=== PATIENT | female | born 1980 | race African-American/Black ===

== ENCOUNTER 2016-09-25 23:35 | Emergency (ER) | payer OTHER ==
[2016-09-25 23:52] VITALS: BP 108/59; PULSE 85; TEMP 98; BMI 42.9
== END 2016-09-26 00:17 | disposition left against medical advice (07) ==
LOC: JER 23:35
DX: Z53.21 Procedure and treatment not carried out due to patient leaving prior to being seen by health care provider (principal)
CPT/HCPCS: 99281-25

== ENCOUNTER 2017-01-03 05:25 | Inpatient (IN) | payer OTHER ==
[2017-01-03] MEDS ORDERED: ELECTROLYTE-148 SOLN 1,000 ML IV ONE (05:45)
[2017-01-03 06:26] LABS: BASOPHIL 0.4 % (0-2.0); EOSINOPHIL 0.9 % (0-4.5); MCH 27.2 pg (25.7-33.7); MEAN CELL VOLUME 84.9 fl (80-96); MEAN PLT VOLUME 8.1 fl (7.5-11.1); NEUTROPHILS 71.3 % (42.8-82.8); PLATELET COUNT 257 K/MM3 (134-434); RDW 15.2 % (11.6-15.6); WHITE BLOOD COUNT 12.8 K/mm3 (4.0-10.0)
[2017-01-03 06:42] VITALS: BMI 46.1
[2017-01-03 06:42] LABS: INR 0.98 (0.82-1.09); PROTHROMBIN TIME (PATIENT) 10.8 SEC (9.98-11.88)
[2017-01-03 06:48] LABS: CALCIUM 8.7 mg/dL (8.5-10.1); COCKROFT - GAULT 315.486; CREATININE 0.5 mg/dL (0.55-1.02)
[2017-01-03] MEDS ORDERED: METOCLOPRAMIDE HCL INJECTION 10 MG/2 ML VIAL IVPUSH ONE (07:12)
[2017-01-03] MEDS ORDERED: ALBUTEROL SO4 0.083% IH SOL 2.5 MG/3 ML VIAL.NEB. NEB PRN (07:40)
[2017-01-03] MEDS ORDERED: CITRIC ACID/SODIUM CITRATE 30 ML UNIT-DOSE CUP PO ONE (07:42)
--- NOTE | 2017-01-03 07:49 | HP ---
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 Weeks Gestation by Dates: 39 ...EDC by Dates: 01/10/17 ...EDC by Sono: 01/10/17 Infectious Disease: Yes: STD's (tx for chlamydia) - Past Surgical History Past Surgical History: Yes: Hx Myomectomy: No Hx Transabdominal Cerclage: No - Smoking History Smoking history: Unknown if ever smoked Have you smoked in the past 12 months: No Aproximately how many cigarettes per day: 0 - Alcohol/Substance Use Hx Alcohol Use: No History of Substance Use: reports: None - Social History History of Recent Travel: No Home Medications - Allergies Allergies/Adverse Reactions: Allergies Allergy/AdvReac Type Severity Reaction Status Date / Time amoxicillin trihydrate Allergy Mild Hives Verified 01/03/17 06:52 [From Augmentin] Latex, Natural Rubber Allergy Mild Swelling Verified 01/03/17 06:52 potassium clavulanate Allergy Mild Hives Verified 01/03/17 06:52 [From Augmentin] sulfamethoxazole Allergy Swelling Verified 01/03/17 06:52 [From Bactrim] trimethoprim [From Bactrim] Allergy Swelling Verified 01/03/17 06:52 seafood Allergy Severe Difficulty Uncoded 11/12/16 18:40 Breathing - Home Medications Home Medications: Ambulatory Orders Pnv95/Iron Fum/Folic Acid [ Caplet] 1 each PO DAILY 09/25/16 Albuterol 0.083% Nebulizer Bria [Ventolin 0.083% Nebulizer Soln -] 1 amp PO PRN PRN 11/12/16 Review of Systems - Review of Systems Constitutional: reports: No Symptoms Eyes: reports: No Symptoms HENT: reports: No Symptoms Neck: reports: No Symptoms Cardiovascular: reports: No Symptoms Respiratory: reports: No Symptoms Gastrointestinal: reports: No Symptoms Genitourinary: reports: No Symptoms Breasts: reports: No Symptoms Reported Musculoskeletal: reports: No Symptoms Integumentary: reports: No Symptoms Neurological: reports: No Symptoms Endocrine: reports: No Symptoms Hematology/Lymphatic: reports: No Symptoms Physical Exam - Maternity Vital Signs: Vital Signs Temperature 99 F 01/03/17 05:25 Pulse Rate 95 H 01/03/17 05:25 Respiratory Rate 20 01/03/17 05:25 Blood Pressure 132/61 01/03/17 05:25 O2 Sat by Pulse Oximetry (%) Constitutional: Yes: No Distress, Calm, Obese Eyes: Yes: WNL, Conjunctiva Clear, EOM Intact HENT: Yes: WNL, Atraumatic, Normocephalic Neck: Yes: WNL, Supple, Trachea Midline Cardiovascular: Yes: WNL, Regular Rate and Rhythm Breast(s): Yes: WNL - Abdominal Exam/OB Fundal Height: 40 Number of Fetuses: Single Presentation: Vertex Contractions: No Intensity: Unaware Monitor Mode: External Heart Rate Location: [facility] Category: I Accelerations: Uniform Decelerations: None - Vaginal Exam/OB Vaginal Bleediing: No Speculum Exam: No Dilatation (cm): closed Effacement (%): 0 Amniotic Membrane Status: Intact Presentation: Vertex/Position Station: -3 - Physical Exam Musculoskeletal: Yes: WNL Extremities: Yes: WNL Edema: LLE: Trace, RLE: Trace Integumentary: Yes: WNL Deep Tendon Reflex Grade: Normal +2 ...Motor Strength: WNL Psychiatric: Yes: WNL - Labs Lab Results: CBC, BMP 01/03/17 06:00 01/03/17 06:00 Hemorrhage Risk Assessment - Risk Factors Risk Score: 3 Risk Level: High Risk Problem List - Problems (1) with 39 completed weeks gestation Code(s): Z3A.39 - 39 WEEKS GESTATION OF (2) Previous delivery affecting Code(s): O34.219 - MATERNAL CARE FOR UNSP TYPE SCAR FROM PREVIOUS DEL (3) Advanced maternal age (AMA) in Code(s): BHT7309 - (4) Obesity (BMI 30-39.9) Code(s): E66.9 - OBESITY, UNSPECIFIED Assessment/Plan repeat c/s , rba discussed
[2017-01-03] MEDS ORDERED: BENZOCAINE 20% 57 GM BOTTLE TP PRN (08:53)
[2017-01-03] MEDS ORDERED: WITCH HAZEL 50% (TUCKS) 40 PAD/JAR PAD TP PRN (08:53)
[2017-01-03] MEDS ORDERED: oxyCODONE HCL 5 MG TABLET PO PRN (08:53)
[2017-01-03] MEDS ORDERED: METHYLERGONOVINE MALEATE 0.2 MG/1 ML AMP IM PRN (08:53)
[2017-01-03] MEDS ORDERED: diphenhydrAMINE HCL 25 MG CAPSULE (FP) PO PRN (08:53)
[2017-01-03] MEDS ORDERED: BENZOCAINE 28 GM HEMORRHOIDAL OINTMENT PR PRN (08:53)
[2017-01-03] MEDS ORDERED: IBUPROFEN 800 MG/8 ML IJ IVPB PRN (08:53)
[2017-01-03] MEDS ORDERED: OXYTOCIN 20 UNITS in 0.9% NS 1,000 ML IV SCH (09:00)
[2017-01-03] MEDS ORDERED: ALBUTEROL SO4 6.7 GM HFA INHALER IH PRN (09:25)
--- NOTE | 2017-01-03 09:41 | OP ---
DATE OF OPERATION: 01/03/2017 PREOPERATIVE DIAGNOSIS: at 39 weeks, 2 previous sections, advanced maternal age, obesity. Request of repeat section. POSTOPERATIVE DIAGNOSIS: at 39 weeks, 2 previous sections, advanced maternal age, obesity. Request of repeat section. PROCEDURE: Repeat low-segment transverse section. SURGEON: Dylon Paul MD INTERVENTION NURSE: CARRIE Garibay ANESTHESIA: Spinal. ANESTHESIOLOGIST: Andrew Oleary MD ESTIMATED BLOOD LOSS: 500 mL. FINDINGS: Live baby girl, ROT position, Apgars 9, 9. OPERATIVE PROCEDURE: The patient was taken to the operating room. Under adequate spinal anesthesia, abdomen and perineum were prepped and draped. Pfannenstiel abdominal skin incision was made over the previous incision. Abdominal wall was cut layer by layer until peritoneum was exposed and incised. Upon entering the abdominal cavity, lower uterine segment was identified and ureterovesical fold of peritoneum established. Bladder was pushed down. Then with the lower blade of the Everett retractor in the pelvis, a low transverse uterine incision was made, incision extended laterally. Amniotic sac was entered. Clear fluid had delivered. Nasopharynx was suctioned and live baby girl was delivered from right occiput transverse position. Nasopharynx was suctioned. Placenta was delivered manually. Uterine cavity was cleaned of all remaining tissue. Uterine incision was closed in 2 layers, first layer with 0 Biosyn continuous suture, the second layer with 0 Biosyn imbricating the first layer. Bladder flap was closed with 0 Biosyn continuous suture. Both tubes and ovaries were checked. No active bleeding was seen. All the lap pads, sponge, and instrument counts were correct. Then peritoneum was closed with 0 Biosyn continuous suture. Muscle was brought together with interrupted suture of 0 Biosyn. Fascia was closed with 0 Biosyn continuous suture, subcutaneous fat interrupted suture of 0 Biosyn, and the skin was closed with elisha. Patient tolerated the procedure well, left the OR in good condition. DYLON PAUL M.D. [id number]
[2017-01-03] MEDS ORDERED: CEFAZOLIN 1 GM/D5W 50 ML IVPB SCH (10:00)
[2017-01-03] MEDS ORDERED: CEFAZOLIN (PRE-DOCKED) 50 ML IVPB ONE (16:48)
[2017-01-03] MEDS: CEFAZOLIN 1 GM/D5W 50 ML IVPB SCH (16:54)
[2017-01-03] MEDS: DEXTROSE 5%-LACTATED RINGERS 1,000 ML IV SCH (17:01)
[2017-01-04] MEDS ORDERED: CEFAZOLIN (PRE-DOCKED) 50 ML IVPB ONE (00:47)
[2017-01-04] MEDS: CEFAZOLIN 1 GM/D5W 50 ML IVPB SCH (01:00)
[2017-01-04] MEDS: IBUPROFEN 600 MG TABLET (FP) PO PRN ×3 (01:08→15:43)
[2017-01-04] MEDS: SIMETHICONE 80 MG TAB.CHEW (FP) PO PRN ×4 (01:08→17:21)
--- NOTE | 2017-01-04 03:27 | PN ---
Post Progress Note Post Day: 1 Type of Delivery: Repeat C/S Vital Signs: Vital Signs Temperature 98.5 F 01/03/17 22:00 Pulse Rate 83 01/03/17 22:00 Respiratory Rate 18 01/03/17 23:00 Blood Pressure 124/65 01/03/17 22:00 O2 Sat by Pulse Oximetry (%) 96 01/03/17 10:00 Breast Exam: Yes: Soft Uterus: Yes: Fundus Firm Incision: Yes: Dressing dry and intact Abdomen/GI: Yes: Abdomen soft Lochia: Yes: Rubra Lochia, amount: Small Extremities: Yes: Calves non-tender Perineum: Yes: Intact Activity: Ambulating - Labs Labs: CBC WBC 12.8 K/mm3 (4.0-10.0) H 01/03/17 06:00 RBC 4.23 M/mm3 (3.60-5.2) 01/03/17 06:00 Hgb 11.5 GM/dL (10.7-15.3) 01/03/17 06:00 Hct 35.9 % (32.4-45.2) 01/03/17 06:00 MCV 84.9 fl (80-96) 01/03/17 06:00 MCHC 32.0 g/dl (32.0-36.0) 01/03/17 06:00 RDW 15.2 % (11.6-15.6) 01/03/17 06:00 Plt Count 257 K/MM3 (134-434) 01/03/17 06:00 MPV 8.1 fl (7.5-11.1) 01/03/17 06:00 Neutrophils % 71.3 % (42.8-82.8) 01/03/17 06:00 Lymphocytes % 19.9 % (8-40) 01/03/17 06:00 Monocytes % 7.5 % (3.8-10.2) 01/03/17 06:00 Eosinophils % 0.9 % (0-4.5) 01/03/17 06:00 Basophils % 0.4 % (0-2.0) 01/03/17 06:00 Assessment/Plan as above labs reg diet pain meds check labs
[2017-01-04] MEDS ORDERED: BISACODYL 10 MG SUPP.RECT RC PRN (08:54)
[2017-01-04 09:04] LABS: BASOPHIL 0.4 % (0-2.0); EOSINOPHIL 1.3 % (0-4.5); MCH 27.5 pg (25.7-33.7); MEAN CELL VOLUME 85.8 fl (80-96); MEAN PLT VOLUME 7.6 fl (7.5-11.1); NEUTROPHILS 75.1 % (42.8-82.8); PLATELET COUNT 234 K/MM3 (134-434); RDW 15.7 % (11.6-15.6); WHITE BLOOD COUNT 14.4 K/mm3 (4.0-10.0)
[2017-01-04] MEDS: oxyCODONE HCL 5 MG TABLET PO PRN ×3 (09:49→17:22)
[2017-01-04] MEDS: ENOXAPARIN NA (PORCINE) 40 MG/0.4 ML DISP.SYRIN SQ SCH (09:53)
[2017-01-04] MEDS ORDERED: ACETAMINOPHEN 325 MG TABLET (FP) ONE (17:19)
[2017-01-04] MEDS: DEXTROSE 5%-LACTATED RINGERS 1,000 ML IV SCH (17:23)
--- NOTE | 2017-01-04 18:48 | PN ---
Progress Note, Physician Chief Complaint: s/p c section under spinal anesthesia History of Present Illness: post op day one - Current Medication List Current Medications: Active Medications Acetaminophen (Tylenol -) 650 mg PO Q4H PRN PRN Reason: FEVER OR PAIN Albuterol Sulfate (Ventolin Hfa Inhaler -) 2 puff IH Q4H PRN PRN Reason: SHORTNESS OF BREATH Benzocaine (Americaine Ointment -) 1 applic [place] PRN PRN PRN Reason: PAIN Benzocaine (Americaine 20% [place] -) 1 spray TP PRN PRN PRN Reason: PAIN Bisacodyl (Dulcolax Suppository -) 10 mg RC PRN PRN PRN Reason: CONSTIPATION Diphenhydramine HCl (Benadryl -) 25 mg PO Q8H PRN PRN Reason: FOR ITCHING Diphenhydramine HCl (Benadryl Injection -) 25 mg IVPUSH Q4H PRN Last Admin: 01/03/17 13:12 Dose: 25 mg Enoxaparin Sodium (Lovenox -) 40 mg SQ DAILY [facility] Last Admin: 01/04/17 09:53 Dose: 40 mg Dextrose/Lactated Ringer's (D5-Lr -) 1,000 mls @ 125 mls/hr IV ASDIR [facility] Last Admin: 01/04/17 17:23 Dose: Not Given Ibuprofen (Motrin -) 600 mg PO Q4H PRN PRN Reason: PAIN Last Admin: 01/04/17 15:43 Dose: 600 mg Methylergonovine Maleate (Methergine Injection -) 0.2 mg IM Q4H PRN PRN Reason: EXCESSIVE BLEEDING Oxycodone HCl (Roxicodone -) 5 mg PO Q4H PRN PRN Reason: PAIN LEVEL 1-5 Last Admin: 01/04/17 17:22 Dose: 5 mg Oxycodone HCl (Roxicodone -) 10 mg PO Q4H PRN PRN Reason: PAIN LEVEL 6-10 Senna/Docusate Sodium (Pericolace -) 1 tablet PO HS PRN PRN Reason: CONSTIPATION Simethicone (Mylicon -) 80 mg PO Q4H PRN PRN Reason: GAS Last Admin: 01/04/17 17:21 Dose: 80 mg Witch Angeli/Glycerin (Tucks Pads -) 1 pad TP PRN PRN PRN Reason: PAIN - Objective Vital Signs: Vital Signs Temperature 98.1 F 01/04/17 10:00 Pulse Rate 84 01/04/17 10:00 Respiratory Rate 18 01/04/17 10:00 Blood Pressure 125/73 01/04/17 10:00 O2 Sat by Pulse Oximetry (%) 96 01/03/17 10:00 Constitutional: Yes: Well Nourished Cardiovascular: Yes: WNL Respiratory: Yes: WNL Gastrointestinal: Yes: WNL Neurological: Yes: WNL Labs: CBC, BMP 01/04/17 08:00 01/03/17 06:00 INR, PTT INR 0.98 (0.82-1.09) 01/03/17 06:00 Assessment/Plan No adverse effects of the anesthetic, pain controlled, ambulating, no headache, dept of anesthesia will sign off care at this time
[2017-01-05] MEDS: ACETAMINOPHEN 325 MG TABLET (FP) PO PRN ×2 (00:19→23:52)
[2017-01-05] MEDS: IBUPROFEN 600 MG TABLET (FP) PO PRN ×5 (03:10→23:52)
[2017-01-05] MEDS: oxyCODONE HCL 5 MG TABLET PO PRN ×2 (03:10→08:30)
[2017-01-05] MEDS: SIMETHICONE 80 MG TAB.CHEW (FP) PO PRN ×5 (03:10→23:52)
[2017-01-05] MEDS: ENOXAPARIN NA (PORCINE) 40 MG/0.4 ML DISP.SYRIN SQ SCH (10:35)
--- NOTE | 2017-01-05 15:09 | PN ---
Post Progress Note Post Day: 1 Type of Delivery: Repeat C/S Vital Signs: Vital Signs Temperature 98.1 F 01/05/17 08:31 Pulse Rate 82 01/05/17 08:31 Respiratory Rate 18 01/05/17 08:31 Blood Pressure 122/72 01/05/17 08:31 O2 Sat by Pulse Oximetry (%) 96 01/03/17 10:00 Breast Exam: Yes: Soft Uterus: Yes: Fundus Firm Incision: Yes: Dressing dry and intact Abdomen/GI: Yes: Abdomen soft Lochia: Yes: Rubra Lochia, amount: Small Extremities: Yes: Calves non-tender Perineum: Yes: Intact Activity: Ambulating - Labs Labs: CBC WBC 14.4 K/mm3 (4.0-10.0) H 01/04/17 08:00 RBC 4.25 M/mm3 (3.60-5.2) 01/04/17 08:00 Hgb 11.7 GM/dL (10.7-15.3) 01/04/17 08:00 Hct 36.4 % (32.4-45.2) 01/04/17 08:00 MCV 85.8 fl (80-96) 01/04/17 08:00 MCHC 32.0 g/dl (32.0-36.0) 01/04/17 08:00 RDW 15.7 % (11.6-15.6) H 01/04/17 08:00 Plt Count 234 K/MM3 (134-434) 01/04/17 08:00 MPV 7.6 fl (7.5-11.1) 01/04/17 08:00 Neutrophils % 75.1 % (42.8-82.8) 01/04/17 08:00 Lymphocytes % 15.2 % (8-40) D 01/04/17 08:00 Monocytes % 8.0 % (3.8-10.2) 01/04/17 08:00 Eosinophils % 1.3 % (0-4.5) 01/04/17 08:00 Basophils % 0.4 % (0-2.0) 01/04/17 08:00 Assessment/Plan doing well reg diet oob continue care
[2017-01-05] MEDS: DEXTROSE 5%-LACTATED RINGERS 1,000 ML IV SCH (17:44)
[2017-01-05] MEDS: SENNOSIDES/DOCUSATE COMBO (SENNA PLUS) TABLET (UD) PO PRN (23:51)
--- NOTE | 2017-01-06 04:27 | PN ---
Post Progress Note Post Day: 3 Type of Delivery: Repeat C/S Vital Signs: Vital Signs Temperature 98.2 F 01/05/17 20:35 Pulse Rate 86 01/05/17 20:35 Respiratory Rate 20 01/05/17 20:35 Blood Pressure 118/67 01/05/17 20:35 O2 Sat by Pulse Oximetry (%) 96 01/03/17 10:00 Breast Exam: Yes: Soft Uterus: Yes: Fundus Firm Incision: Yes: Inder intact Abdomen/GI: Yes: Abdomen soft Lochia: Yes: Rubra Lochia, amount: Small Extremities: Yes: Calves non-tender Perineum: Yes: Intact Activity: Ambulating - Labs Labs: CBC WBC 14.4 K/mm3 (4.0-10.0) H 01/04/17 08:00 RBC 4.25 M/mm3 (3.60-5.2) 01/04/17 08:00 Hgb 11.7 GM/dL (10.7-15.3) 01/04/17 08:00 Hct 36.4 % (32.4-45.2) 01/04/17 08:00 MCV 85.8 fl (80-96) 01/04/17 08:00 MCHC 32.0 g/dl (32.0-36.0) 01/04/17 08:00 RDW 15.7 % (11.6-15.6) H 01/04/17 08:00 Plt Count 234 K/MM3 (134-434) 01/04/17 08:00 MPV 7.6 fl (7.5-11.1) 01/04/17 08:00 Neutrophils % 75.1 % (42.8-82.8) 01/04/17 08:00 Lymphocytes % 15.2 % (8-40) D 01/04/17 08:00 Monocytes % 8.0 % (3.8-10.2) 01/04/17 08:00 Eosinophils % 1.3 % (0-4.5) 01/04/17 08:00 Basophils % 0.4 % (0-2.0) 01/04/17 08:00 Assessment/Plan as above reg diet oob
[2017-01-06 07:43] LABS: BASOPHIL 0.8 % (0-2.0); EOSINOPHIL 2.3 % (0-4.5); MCH 27.8 pg (25.7-33.7); MCHC 32.6 g/dl (32.0-36.0); MEAN CELL VOLUME 85.2 fl (80-96); MEAN PLT VOLUME 7.9 fl (7.5-11.1); NEUTROPHILS 69.3 % (42.8-82.8); PLATELET COUNT 223 K/MM3 (134-434); RDW 15.4 % (11.6-15.6); WHITE BLOOD COUNT 11.6 K/mm3 (4.0-10.0)
[2017-01-06] MEDS: SIMETHICONE 80 MG TAB.CHEW (FP) PO PRN ×3 (08:42→21:43)
[2017-01-06] MEDS: IBUPROFEN 600 MG TABLET (FP) PO PRN ×3 (08:43→21:43)
[2017-01-06] MEDS: ENOXAPARIN NA (PORCINE) 40 MG/0.4 ML DISP.SYRIN SQ SCH (10:56)
[2017-01-06] MEDS: ACETAMINOPHEN 325 MG TABLET (FP) PO PRN ×2 (16:06→21:44)
[2017-01-06] MEDS: DEXTROSE 5%-LACTATED RINGERS 1,000 ML IV SCH (18:50)
[2017-01-06] MEDS: SENNOSIDES/DOCUSATE COMBO (SENNA PLUS) TABLET (UD) PO PRN (21:43)
[2017-01-07] MEDS: SIMETHICONE 80 MG TAB.CHEW (FP) PO PRN ×2 (05:09→11:55)
[2017-01-07] MEDS: ACETAMINOPHEN 325 MG TABLET (FP) PO PRN ×2 (05:09→11:55)
[2017-01-07] MEDS: IBUPROFEN 600 MG TABLET (FP) PO PRN ×2 (05:10→11:55)
[2017-01-07 09:16] VITALS: BP 137/79; PULSE 70; TEMP 97.9
[2017-01-07] MEDS: ENOXAPARIN NA (PORCINE) 40 MG/0.4 ML DISP.SYRIN SQ SCH (11:05)
--- NOTE | 2017-01-07 13:20 | DS ---
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 Vital Signs: Vital Signs Temperature 97.9 F 01/07/17 09:14 Pulse Rate 70 01/07/17 09:14 Respiratory Rate 20 01/07/17 09:14 Blood Pressure 137/79 01/07/17 09:14 O2 Sat by Pulse Oximetry (%) 96 01/03/17 10:00 Constitutional: Yes: Well Nourished Eyes: Yes: Conjunctiva Clear HENT: Yes: Atraumatic Neck: Yes: Supple, Trachea Midline Cardiovascular: Yes: Regular Rate and Rhythm Respiratory: Yes: Regular, CTA Bilaterally Gastrointestinal: Yes: Normal Bowel Sounds External Genitalia: Yes: Normal Vaginal Exam: Yes: Normal Cervix: Yes: Normal Uterus: Yes: Firm Breast(s): Yes: WNL Wound/Incision: Yes: [place] Intact Neurological: Yes: Alert, Oriented ...Motor Strength: WNL Psychiatric: Yes: Alert, Oriented Labs: CBC, BMP 01/06/17 06:00 01/03/17 06:00 Delivery - Delivery Type of Anesthesia: Spinal Episiotomy/Laceration: None EBL (cc): 500 Delivery, Single - Stages of Labor Date of Delivery: 01/03/17 Time of Delivery: 08:23 Time Placenta Delivered: 08:24 - 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: No Gender: Female Weight: 8 lb 2 oz Position: Right, OT Total Hours ROM (Hrs/Mins): 2mins - 1 Minute Total Score: 8 Home Delivery on Admit Total Score: 8 - Feeding Plan Initial Plan: Elected not to breastfeed exclusively throughout hospitalization Discharge Summary Reason For Visit: SCHEDULED Current Active Problems Advanced maternal age (AMA) in (Acute) Obesity (BMI 30-39.9) (Acute) with 39 completed weeks gestation (Acute) Previous delivery affecting (Acute) Procedures: Principal: Hospital Course: Routine Post op care Condition: Good - Instructions Diet, Activity, Other Instructions: Regular diet Wound care F/U in clinic for elisha removal next week. Disposition: HOME - Home Medications Comprehensive Discharge Medication List: Ambulatory Orders Pnv95/Iron Fum/Folic Acid [ Caplet] 1 each PO DAILY 09/25/16 Albuterol 0.083% Nebulizer Bria [Ventolin 0.083% Nebulizer Soln -] 1 amp PO PRN PRN 11/12/16
--- NOTE | 2017-01-09 13:24 | PATH ---
Surgical Pathology Report Patient Name: DEBORAH DAVIS Med. Rec. #: [id number] /Age/Gender: 1980 (Age: 36) / F Account: [id number] Location: [facility] OBS/WHIP SAWYER Taken: 01/03/2017 Received: 01/07/2017 Reported: 01/09/2017 Physicians: Oz Paul M.D. Specimen(s) Received PLACENTA Clinical History , 39 weeks, borderline diabetic, asthma, gallstones, obesity, fibroid uterus Repeat c/section Final Diagnosis PLACENTA, DELIVERY: FOCALLY DISRUPTED THIRD TRIMESTER PLACENTA WITH MILD INCREASE IN PREVILLOUS, PERIVILLOUS, AND PRECHORIONIC FIBRIN DEPOSITION, FOCAL CALCIFICATIONS, THREE VESSEL UMBILICAL CORD, AND PLACENTAL MEMBRANES WITH AMNION HYPERPLASIA. Electronically Signed Delio Pop M.D. Gross Description The specimen is received fresh, labeled "placenta" and is a 444 gram, 22.0 x 16.5 x 2.0 cm placenta with attached membranes and umbilical cord. The attached membranes are stoner, translucent with focal opacities and insert marginally. The umbilical cord measures 26 cm in length and averages 1 cm in diameter. The cord inserts eccentrically, 5 cm to the nearest margin. No true knots or strictures are identified. Cut surface of the umbilical cord reveals 3 vessels. The surface is velez-blue with fibrin deposition and appropriate caliber vessels. The maternal surface is red-brown with focal defects. Sectioning reveals red-brown, spongy parenchyma. No focal lesions are identified. Foxing Closer sections are submitted in three cassettes as follows: 1- membrane rolls and umbilical cord; 2-3- full thickness sections of placenta. /01/08/2017 [facility]01/08/2017
== END 2017-01-07 13:50 | disposition home or self-care (01) | DRG 540 ==
LOC: JLDR 05:25 → J3W 10:39
PROVIDERS: ADMIT Obstetrics & Gynecology; ATTEND Obstetrics & Gynecology
PROC: 10D00Z1 Extraction of Products of Conception, Low, Open Approach (ICD-10-PCS; principal; 2017-01-03)
DX: O34.211 Maternal care for low transverse scar from previous cesarean delivery (principal); O99.02 Anemia complicating childbirth; D64.9 Anemia, unspecified; O99.214 Obesity complicating childbirth; E66.01 Morbid (severe) obesity due to excess calories; Z68.42 Body mass index [BMI] 45.0-49.9, adult; O75.89 Other specified complications of labor and delivery; J45.909 Unspecified asthma, uncomplicated; Z3A.39 39 weeks gestation of pregnancy; Z37.0 Single live birth
CPT/HCPCS: 36415; 80048; 85025; 85610; 85730; 86593; 86850; 86900; 86901; 88307-TC

== ENCOUNTER 2017-07-01 16:10 | Emergency (ER) | payer OTHER ==
--- NOTE | 2017-07-01 16:34 | PDOC ---
Rapid Medical Evaluation Time Seen by Provider: 07/01/17 16:30 Medical Evaluation: Allergies Allergy/AdvReac Type Severity Reaction Status Date / Time amoxicillin trihydrate Allergy Mild Hives Verified 01/03/17 06:52 [From Augmentin] Latex, Natural Rubber Allergy Mild Swelling Verified 01/03/17 06:52 potassium clavulanate Allergy Mild Hives Verified 01/03/17 06:52 [From Augmentin] sulfamethoxazole Allergy Swelling Verified 01/03/17 06:52 [From Bactrim] trimethoprim [From Bactrim] Allergy Swelling Verified 01/03/17 06:52 seafood Allergy Severe Difficulty Uncoded 11/12/16 18:40 Breathing 07/01/17 16:31 Pt arrives with complaints of: fell on rt knee x 1 week, no relief with tylenol , no injury prior On exam : ambulatory, mild edema, FROM I have ordered: right knee xray Pt will go to : fast track Discharge Disposition - Diagnosis Right knee injury - Referrals - Patient Instructions - Post Discharge Activity
[2017-07-01 16:36] VITALS: BP 100/66; PULSE 72; TEMP 97.8; BMI 42.1
[2017-07-01] MEDS ORDERED: KETOROLAC TROMETHAMINE 60 MG/2 ML VIAL IM ONE (17:24)
--- NOTE | 2017-07-01 17:28 | PDOC ---
History of Present Illness - General Chief Complaint: Injury Stated Complaint: RT KNEE PAIN Time Seen by Provider: 07/01/17 16:30 - History of Present Illness Initial Comments: 07/01/17 17:23 CHIEF COMPLAINT: R knee pain HISTORY OF PRESENT ILLNESS: 37 yo F with no significant hx presents to [employer] [facility] [employer] with R knee pain s/p fall last week. Patient states she fell while carrying her 6 month old and landed on both of her knees "but for some reason the right side hurts more than the left." She states she has been walking but the pain has worsened to her right knee. She denies any loss of sensation to her legs. PAST MEDICAL HISTORY: Denies past medical history FAMILY HISTORY: Denies SOCIAL HISTORY: Denies tobacco, alcohol, illicit drug use. SURGICAL HISTORY: Denies ALLERGIES: No known drug allergies REVIEW OF SYSTEMS As per HPI PHYSICAL EXAM General Appearance: Well-appearing, appropriately dressed. HEENT: EOMI, PERRLA. Respiratory/Chest: Lungs CTAB. Cardiovascular: RRR. S1, S2. Musculoskeletal/Extremities: Full ROM to R knee, patient ambulatory. Sensory discrimination to R leg intact. FROM of all other extremities, normal capillary refill. Pelvis Stable. No CVA tenderness. No tenderness to extremities, pedal edema, swelling, erythema or deformity. Integumentary: Appropriate color, dry, warm. 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 Fully oriented, alert. Appropriate mood/affect. Motor strength 5/5. No appreciable EOM palsy, facial droop or sensory deficit. Past History - Past Medical History Allergies/Adverse Reactions: Allergies Allergy/AdvReac Type Severity Reaction Status Date / Time amoxicillin trihydrate Allergy Mild Hives Verified 07/01/17 16:32 [From Augmentin] Latex, Natural Rubber Allergy Mild Swelling Verified 07/01/17 16:32 potassium clavulanate Allergy Mild Hives Verified 07/01/17 16:32 [From Augmentin] sulfamethoxazole Allergy Swelling Verified 07/01/17 16:32 [From Bactrim] trimethoprim [From Bactrim] Allergy Swelling Verified 07/01/17 16:32 seafood Allergy Severe Difficulty Uncoded 07/01/17 16:32 Breathing Home Medications: Ambulatory Orders Diclofenac Sodium [Voltaren -] 75 mg PO BID #14 tablet. 07/01/17 Anemia: No Asthma: Yes Cancer: No Cardiac Disorders: No CVA: No COPD: No CHF: No Dementia: No Diabetes: No GI Disorders: Yes (GERD) Disorders: Yes (RENAL COLIC) HTN: No Hypercholesterolemia: Yes Liver Disease: No Seizures: No Thyroid Disease: No Other medical history: cerebral pseudo tumor - Surgical History Orthopedic Surgery: Yes (rt knee surgery) - Reproductive History (#): 9 Para: 2 Cervical CA: No Dysfunctional Uterine Bleeding: No Ectopic : No Endometrial CA: No Polycystic Ovaries: No Therapeutic (s) & number: Yes (5) Tubal Ligation: No Spontaneous : 0 - Immunization History Td Vaccination: Yes Immunization Up to Date: Yes - Suicide/Smoking/Psychosocial Hx Smoking Status: No Smoking History: Never smoked Have you smoked in the past 12 months: No Number of Cigarettes Smoked Daily: 0 Information on smoking cessation initiated: No Hx Alcohol Use: No Drug/Substance Use Hx: No Substance Use Type: None Hx Substance Use Treatment: No *Physical Exam - Vital Signs Last Vital Signs Temp Pulse Resp BP Pulse Ox 97.8 F 72 18 100/66 100 07/01/17 16:33 07/01/17 16:33 07/01/17 16:33 07/01/17 16:33 07/01/17 16:33 Medical Decision Making - Medical Decision Making 07/01/17 17:27 37 yo F with no significant hx presents to fast track with R knee pain s/p fall last week. -right knee x-ray x-ray negative for fracture 60 mg Toradol knee immobilizer Will rx NSAIDS for pain. Advised patient to take medication as prescribed and follow up with orthopedics if pain persists past 1 week. Advised patient of signs and symptoms for return to ED. Patient verbalized understanding and agrees to plan. *DC/Admit/Observation/Transfer Diagnosis at time of Disposition: Right knee injury Qualifiers: Encounter type: initial encounter Qualified Code(s): S89.91XA - Unspecified injury of right lower leg, initial encounter - Discharge Dispostion Disposition: HOME Condition at time of disposition: Stable Admit: No - Prescriptions Prescriptions: Diclofenac Sodium [Voltaren -] 75 mg PO BID #14 tablet.dr - Referrals Referrals: Thalia Vitale [Primary Care Provider] - - Patient Instructions Printed Discharge Instructions: DI for Knee Pain Additional Instructions: Please take medication as prescribed and allow your knee to rest. If your symptoms persist past 1 week after taking medications, please follow up with orthopedics as discussed. If you develop any inability to walk or move your leg , loss of sensation to your leg, chest pain, shortness of breath, pain to your calf, or any new or worsening symptoms, please return to the ER. - Post Discharge Activity
[2017-07-01] MEDS ORDERED: KETOROLAC TROMETHAMINE 60 MG/2 ML VIAL ONE (17:30)
== END 2017-07-01 17:56 | disposition home or self-care (01) ==
LOC: JERFT 16:10
PROC: 3E0233Z Introduction of Anti-inflammatory into Muscle, Percutaneous Approach (ICD-10-PCS; principal; 2017-07-01)
DX: S89.81XA Other specified injuries of right lower leg, initial encounter (principal); W18.39XA Other fall on same level, initial encounter; Y93.89 Activity, other specified; Y92.89 Other specified places as the place of occurrence of the external cause; Y99.8 Other external cause status; Z87.19 Personal history of other diseases of the digestive system
CPT/HCPCS: 73562-TC-RT; 96372; 99281-25

== ENCOUNTER 2020-02-08 10:09 | Day surgery (SDC) | payer OTHER ==
[2020-02-08 10:38] VITALS: BMI 45.1
--- NOTE | 2020-02-08 13:17 | HP ---
History & Physical Update - History History: No Change - Physical Physical: No Change - Assessment Assessment: No Change - Plan Plan: No Change
[2020-02-08] MEDS ORDERED: ACETAMINOPHEN 1000 MG/100 ML VIAL (NON FORMULARY) IVPB ONE (13:18)
[2020-02-08] MEDS ORDERED: MIDAZOLAM HCL 2 MG/2 ML SINGLE DOSE VIAL ONE (13:24)
[2020-02-08] MEDS ORDERED: KETOROLAC TROMETHAMINE 30 MG/1 ML VIAL ONE ×2 (13:24→13:39)
[2020-02-08] MEDS ORDERED: PROPOFOL 20 ML ONE (13:24)
[2020-02-08] MEDS ORDERED: IBUPROFEN 800 MG/8 ML IJ IVPB SCH (13:30)
[2020-02-08] MEDS ORDERED: DEXTROSE 5%-0.45% SALINE 1,000 ML IV SCH (13:30)
[2020-02-08 14:06] VITALS: TEMP 97.3
[2020-02-08] MEDS ORDERED: ONDANSETRON 4 MG/2 ML VIAL ONE (15:12)
[2020-02-08] MEDS ORDERED: ONDANSETRON 4 MG/2 ML VIAL IVPB ONE (15:15)
[2020-02-08 18:07] VITALS: BP 115/74; PULSE 70
--- NOTE | 2020-02-18 14:18 | OP ---
DATE OF OPERATION: 02/08/2020 PREOPERATIVE DIAGNOSIS: Right kidney stone. POSTOPERATIVE DIAGNOSIS: Right kidney stone. PROCEDURE: Right extracorporeal shockwave lithotripsy. SURGEON: Viktor Nunn MD ANESTHESIA: IV sedation. FINDINGS: Several moderate-sized stones in the lower pole of the right kidney. SPECIMENS: None. ESTIMATED BLOOD LOSS: None. PREOPERATIVE INDICATIONS: Patient is a 39-year-old female with a history of recurrent kidney stone disease. Recent imaging has shown she has several 3- to 5-mm stones in the lower pole of her right kidney. She comes for ESWL. OPERATION: The patient was brought to the OR, placed on the table in the supine position. The stones were seen on both ultrasound and fluoroscopy. The machine was appropriately positioned. Patient was given IV sedation and IV antibiotics and the procedure was commenced; 2500 shocks were applied to the stones. Patient tolerated procedure well. She was then woken up. Milagors [id number]
== END 2020-02-08 17:25 | disposition home or self-care (01) ==
LOC: JASU-SURG 10:09
PROVIDERS: ATTEND Urology
PROC: 0TF3XZZ Fragmentation in Right Kidney Pelvis, External Approach (ICD-10-PCS; principal; 2020-02-08 12:30)
DX: N20.0 Calculus of kidney (principal)
CPT/HCPCS: 84703

== ENCOUNTER 2020-04-19 23:58 | Emergency (ER) | payer OTHER ==
[2020-04-20 00:22] VITALS: BP 126/71; PULSE 77; TEMP 98.3; BMI 42.7
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
[2020-04-20] MEDS ORDERED: ACETAMINOPHEN 325 MG TABLET (FP) PO ONE (00:39)
[2020-04-20] MEDS ORDERED: ACETAMINOPHEN 325 MG TABLET (FP) ONE (00:47)
--- NOTE | 2020-04-20 01:00 | PDOC ---
Documentation entered by Allison Carlin SCRIBE, acting as scribe for Sharlene Crisostomo DO. Sharlene Crisostomo DO: This documentation has been prepared by the hallee, Allison Carlin SCRIBE, under my direction and personally reviewed by me in its entirety. I confirm that the documentation accurately reflects all work, treatment, procedures, and medical decision making performed by me. Attending Attestation - Resident Resident Name: Mike Unger - ED Attending Attestation I have performed the following: I have examined & evaluated the patient, The case was reviewed & discussed with the resident, I agree w/resident's findings & plan, Exceptions are as noted - HPI HPI: 04/20/20 00:26 Patient is a 39 year old female with R ankle pain after an inversion injury at work about a week ago. Pt was seen at [facility] over the weekend and was told to put icy/hot on her ankle for pain relief, which has not been helping. Pt with pain and swelling to the R lateral malleolus. Pt walked in wearing flip flops. No knee or hip pain. No pain along the 5th metatarsal. No other complaints. 04/20/20 00:52 - Physicial Exam PE: 04/20/20 00:53 Gen: aaox3, nad heart: +s1s2 reg lungs: cta b/l ext: R lateral malleolus with soft tissue swelling and ttp, no ttp over the 5th metatarsal, no ttp over the foot, pulses and sensation intact, ambulatory in the ER - Medical Decision Making 04/20/20 00:58 a/p: 39yo female with R lateral ankle pain -suspect ankle sprain -will repeat xrays -angela wrap, aircast -ice, tylenol -ortho follow up -finished her menstrual cycle 2 days ago 04/20/20 01:50 no acute fx will place in an aircast ortho follow up discussed RICE in detail stable for dc to home Discharge - Discharge Information Problems reviewed: Yes Clinical Impression/Diagnosis: Ankle sprain, Right ankle pain Condition: Stable Disposition: HOME - Admission No - Follow up/Referral Referrals: Sukhjinder Vasquez DO [Staff Physician] - - Patient Discharge Instructions Patient Printed Discharge Instructions: DI for Ankle Pain - Post Discharge Activity
== END 2020-04-20 02:39 | disposition home or self-care (01) ==
LOC: JER 23:58
DX: S93.401A Sprain of unspecified ligament of right ankle, initial encounter (principal); M25.571 Pain in right ankle and joints of right foot
CPT/HCPCS: 73610-TC-RT-FY; 73630-TC-RT-FY; 99283-25

== ENCOUNTER 2020-08-09 15:43 | Emergency (ER) | payer OTHER ==
[2020-08-09 15:52] VITALS: BP 157/82; PULSE 78; TEMP 98.2; BMI 48.1
[2020-08-09] MEDS ORDERED: DIPHTH,PERTUSS(ACELL),TET 0.5 ML DISP.SYRIN IM ONE ×2 (16:38→16:42)
== END 2020-08-09 17:25 | disposition home or self-care (01) ==
LOC: JERFT 15:43
PROC: 3E0234Z Introduction of Serum, Toxoid and Vaccine into Muscle, Percutaneous Approach (ICD-10-PCS; principal; 2020-08-09)
DX: S61.214A Laceration without foreign body of right ring finger without damage to nail, initial encounter (principal)
CPT/HCPCS: 90715; 99284-25

== ENCOUNTER 2020-09-08 08:56 | Emergency (ER) | payer OTHER ==
[2020-09-08 09:23] VITALS: BP 125/83; PULSE 99; TEMP 98.6; BMI 46.1
[2020-09-08 11:47] LABS: EPI CELLS >36 /uL (0-25.1); HYALINE CASTS 8 /uL (0-3.1); PH,URINE 7.5 (5.0-8.0); URINE APPEARANCE CLOUDY; URINE BACTERIA 1214 /uL (0-1359); URINE BILIRUBIN NEGATIVE (NEGATIVE); URINE COLOR YELLOW; URINE GLUCOSE (UA) NEGATIVE (NEGATIVE); URINE KETONE NEGATIVE (NEGATIVE); URINE LEUK ESTERASE NEGATIVE (NEGATIVE); URINE NITRITE NEGATIVE (NEGATIVE); URINE PROTEIN NEGATIVE (NEGATIVE)
[2020-09-08 11:50] LABS: BASO % 1.8 % (0-2.0); EOS % 1.4 % (0-4.5); HEMATOCRIT 35.7 % (32.4-45.2); HEMOGLOBIN 11.7 GM/dL (10.7-15.3); LYMPH % 25.4 % (8-40); MCH 27.8 pg (25.7-33.7); MCHC 32.7 g/dl (32.0-36.0); MEAN CELL VOLUME 85.1 fl (80-96); MEAN PLT VOLUME 7.4 fl (7.5-11.1); MONO % 4.7 % (3.8-10.2); NEUT % 66.7 % (42.8-82.8); PLATELET COUNT 314 K/MM3 (134-434); RDW 14.7 % (11.6-15.6); WHITE BLOOD COUNT 10.5 K/mm3 (4.0-10.0)
[2020-09-08 11:57] LABS: INR 1.04 (0.83-1.09); PROTHROMBIN TIME (PATIENT) 12.6 SEC (9.7-13.0)
[2020-09-08 12:00] LABS: ACTIVATED PTT 28.9 SECONDS (25.2-36.5)
[2020-09-08 12:05] LABS: URINE RBC 74.8 /uL (0-23.9); URINE WBC 59.7 /uL (0-25.8)
[2020-09-08 12:18] LABS: CHLORIDE 108 mmol/L (98-107); POTASSIUM 3.9 mmol/L (3.5-5.1); SODIUM 141 mmol/L (136-145)
[2020-09-08 12:20] LABS: ALBUMIN 3.5 g/dl (3.4-5.0); ANION GAP 8 MMOL/L (8-16); CALCIUM 8.6 mg/dL (8.5-10.1); CO2 25 mmol/L (21-32); GLUCOSE,RANDOM 81 mg/dL (74-106)
[2020-09-08 12:20] LABS: YEAST NON SEEN (NEGATIVE)
[2020-09-08 12:21] LABS: BLOOD UREA NITROGEN 8.7 mg/dL (7-18)
[2020-09-08 12:23] LABS: SGPT/ALT 31 U/L (13-61)
[2020-09-08 12:24] LABS: CREATININE 0.6 mg/dL (0.55-1.3); SGOT/AST 20 U/L (15-37)
[2020-09-08 12:25] LABS: BILIRUBIN,TOTAL 0.6 mg/dL (0.2-1); TOT PROT 6.8 g/dl (6.4-8.2)
[2020-09-08 12:26] LABS: ALK PHOS 90 U/L (45-117)
== END 2020-09-08 13:02 | disposition home or self-care (01) ==
LOC: JER 08:56
DX: R07.9 Chest pain, unspecified (principal)
CPT/HCPCS: 36415; 71046-TC-FY; 80053; 81003; 82550; 82553; 84484; 85025; 85610; 85730; 87086; 93005; 93010; 99285-25

== ENCOUNTER 2023-09-08 16:34 | Emergency (ER) | payer OTHER ==
[2023-09-08 16:42] VITALS: TEMP 98.1; BMI 27.2
[2023-09-08] MEDS ORDERED: ACETAMINOPHEN INJECTION 100 ML IVPB ONE (18:05)
[2023-09-08] MEDS ORDERED: LIDOCAINE 4% PATCH TP ONE (18:06)
[2023-09-08] MEDS: LIDOCAINE 5% TOPICAL PATCH TP ONE (18:25)
[2023-09-08] MEDS: ACETAMINOPHEN 1000 MG/100 ML BAG IVPB ONE (18:25)
[2023-09-08] MEDS: SODIUM CHLORIDE 0.9% 500 ML INFUS.BAG IV ONE (18:25)
[2023-09-08 18:54] LABS: BASO % 1.1 % (0-2.0); EOS % 0.7 % (0-4.5); HEMATOCRIT 33.3 % (32.4-45.2); LYMPH % 36.6 % (8-40); MCH 28.8 pg (25.7-33.7); MCHC 33.1 g/dl (32.0-36.0); MEAN CELL VOLUME 87.1 fl (80-96); MEAN PLT VOLUME 7.7 fl (7.5-11.1); MONO % 5.5 % (3.8-10.2); NEUT % 56.1 % (42.8-82.8); PH,URINE 8.5 (5.0-8.0); PLATELET COUNT 169 10^3/uL (134-434); RBC 3.83 M/mm3 (3.60-5.2); RDW 13.4 % (11.6-15.6); URINE APPEARANCE TURBID; URINE BILIRUBIN NEGATIVE (NEGATIVE); URINE COLOR YELLOW; URINE GLUCOSE (UA) NEGATIVE (NEGATIVE); URINE KETONE NEGATIVE (NEGATIVE); URINE LEUK ESTERASE NEGATIVE (NEGATIVE); URINE NITRITE NEGATIVE (NEGATIVE); URINE PROTEIN NEGATIVE (NEGATIVE); WHITE BLOOD COUNT 5.7 K/mm3 (4.0-10.0)
[2023-09-08] MEDS ORDERED: ONDANSETRON 4 MG/2 ML VIAL ONE (18:58)
[2023-09-08] MEDS: ONDANSETRON 4 MG/2 ML VIAL IVPB ONE (19:04)
[2023-09-08] MEDS: morphine SULFATE 4 MG/ML VIAL IVPUSH ONE (19:20)
[2023-09-08 19:21] LABS: POTASSIUM 3.9 mmol/L (3.5-5.1)
[2023-09-08 19:24] LABS: CALCIUM 8.5 mg/dL (8.5-10.1)
[2023-09-08 19:25] LABS: ALBUMIN 3.8 g/dl (3.4-5.0); BLOOD UREA NITROGEN 11.6 mg/dL (7-18); MAGNESIUM 2.2 mg/dL (1.8-2.4)
[2023-09-08 19:28] LABS: CREATININE 0.6 mg/dL (0.55-1.3); PHOSPHOROUS 3.1 mg/dL (2.5-4.9)
[2023-09-08 19:29] LABS: BILIRUBIN,TOTAL 0.4 mg/dL (0.2-1); TOT PROT 6.8 g/dl (6.4-8.2)
[2023-09-08] MEDS: LIDOCAINE PATCH REMOVAL MC SCH (22:02)
[2023-09-08 23:45] VITALS: BP 120/75; PULSE 79; RESP 19
== END 2023-09-08 23:45 | disposition home or self-care (01) ==
LOC: JER 16:34
PROC: 3E033GC Introduction of Other Therapeutic Substance into Peripheral Vein, Percutaneous Approach (ICD-10-PCS; principal; 2023-09-08)
PROC: 3E033GC Introduction of Other Therapeutic Substance into Peripheral Vein, Percutaneous Approach (ICD-10-PCS; 2023-09-08)
PROC: 3E033NZ Introduction of Analgesics, Hypnotics, Sedatives into Peripheral Vein, Percutaneous Approach (ICD-10-PCS; 2023-09-08)
DX: R10.32 Left lower quadrant pain (principal); N20.0 Calculus of kidney; J90 Pleural effusion, not elsewhere classified; K59.00 Constipation, unspecified; R11.2 Nausea with vomiting, unspecified; Z20.822 Contact with and (suspected) exposure to COVID-19
CPT/HCPCS: 0241U-QW; 36415; 74176-TC; 80053; 81003; 83605; 83735; 84100; 84703; 85025; 87086; 87186; 99284-25; J0131

== ENCOUNTER 2025-04-15 12:09 | Emergency (ER) | payer OTHER ==
[2025-04-15 12:42] VITALS: BP 118/75; PULSE 83; RESP 20; TEMP 98.4; BMI 29.9
[2025-04-15 13:50] LABS: ABSOLUTE IMMATURE GRANULOCYTES 0.01 x10^3/uL (0.0-0.031); BASOPHILS # 0.06 x10^3/uL (0.01-0.08); EOSINOPHIL % 0.5 % (0.7-5.8); EOSINOPHILS # 0.04 x10^3/uL (0.04-0.36); MCHC 31.6 g/dl (32.2-35.5); MEAN CELL VOLUME 91.0 fl (79.4-94.8); MEAN PLT VOLUME 8.9 fl (9.4-12.3); MONOCYTE # 0.54 x10^3/uL (0.24-0.86); MONOCYTE % 6.7 % (4.7-12.5); RDW 14.3 % (12.2-17.1)
[2025-04-15 13:51] LABS: INR 0.98 (0.83-1.09); PROTHROMBIN TIME (PATIENT) 10.9 SEC (9.7-13.0)
[2025-04-15 13:53] LABS: ACTIVATED PTT 27.9 SECONDS (25.2-36.5)
[2025-04-15 14:00] LABS: ALK PHOS 68.0 U/L (45-117); CO2 26.0 mmol/L (21-32); CREATININE 0.7 mg/dl (0.6-1.3); GLUCOSE,RANDOM 92.0 mg/dl (74-106); SGOT/AST 27.0 U/L (15-37); SGPT/ALT 38.0 U/L (7-52); TOT PROT 6.6 g/dl (6.4-8.2)
[2025-04-15 17:38] LABS: HCV DIAGNOSTIC IN-HOUSE W/RFLX NON-REACTIVE (NONREACTIVE)
[2025-04-15 17:39] LABS: HIV INTERPRETATION NEGATIVE (NEGATIVE)
== END 2025-04-15 15:01 | disposition home or self-care (01) ==
LOC: FER 12:09
DX: N93.8 Other specified abnormal uterine and vaginal bleeding (principal); R42 Dizziness and giddiness
CPT/HCPCS: 36415; 80053; 84703; 85025; 85610; 85730; 86803; 86850; 86900; 86901; 87389; 99283-25